=== PATIENT | female | born 1995 | race Caucasian/White ===

== ENCOUNTER 2016-12-28 12:11 | Emergency (ER) | payer MEDICAID ==
[2016-12-28 12:26] VITALS: BP 124/76; PULSE 88; RESP 18; TEMP 98.2; O2SAT 98
[2016-12-28] MEDS ORDERED: NS 1,000 ML IV ONE (13:21)
[2016-12-28] MEDS ORDERED: ONDANSETRON 4 MG/2 ML VIAL IVP ONE (13:21)
[2016-12-28] MEDS ORDERED: HYDROmorphONE/DILAUDID 1 MG/ML SYR IVP ONE (13:21)
--- NOTE | 2016-12-28 13:21 | EDPHY ---
H & P Stated Complaint: Body aches, nausea, numerous other c/o, x 1 day Time Seen by Provider: 12/28/16 13:26 HPI/ROS: HPI: 21-year-old female presents to emergency department with chief concern abdominal pain. Reports 8/10 mid epigastric and left-sided abdominal pain that radiates around into her back that onset suddenly last night. Reports associated dizziness, nausea and subjective fever. Denies URI symptoms, shortness of breath, chest pain, vomiting, diarrhea, urinary symptoms. No unusual vaginal discharge or lesions. Normal bowel movements. ROS:10 point review of systems is negative other than as stated in HPI Source: Patient Exam Limitations: No limitations - Personal History LMP (Females 10-55): 15-21 Days Ago Current Tetanus Diphtheria and Acellular Pertussis (TDAP): Yes - Medical/Surgical History Hx Asthma: No Hx Chronic Respiratory Disease: No Hx Diabetes: No Hx Cardiac Disease: No Hx Renal Disease: No Hx Cirrhosis: No Hx Alcoholism: No Hx HIV/AIDS: No Hx Splenectomy or Spleen Trauma: No Other PMH: PMH: pancreatitis; spinalbifida; spinal fluid leaks;. PSH: 32 sx for spinabifida; ovarian cyst - Family History Significant Family History: No pertinent family hx - Social History Smoking Status: Former smoker Alcohol Use: Rarely Drug Use: None - Physical Exam Exam: Vital signs stable, reviewed by me General: Awake, alert, calm, cooperative. No acute distress. Head: Normalocephalic. Atraumatic. EENT: PERRLA. EOMI. No pallor or injection. Anicteric. No nystagmus. No injection. TMs intact bilaterally with normal landmarks. No rhinnorhea, nasal passages clear. Oropharynx without redness, exudates, or lesions. Tonsils 2+ bilaterally, no exudates. Neck: Supple, nontender. No lymphadenopathy. Full range of motion. No meningismus. Respiratory: Breathing unlabored. Breath sounds equal bilaterally and clear to auscultation. No adventitious sounds. CV: Chest nontender, atraumatic. Heart rate regular. No murmur. Brisk cap refill all extremities. GI: Abdomen soft, mid epigastric tenderness, left abdominal tenderness. Mild right upper quadrant tenderness. Negative Davis sign. No right lower quadrant tenderness. No guarding. No rebound. Bowel sounds normoactive and positive x4 quadrants. : No suprapubic tenderness. No CVA or flank tenderness. Neuro: Alert. Oriented x 3. Speech clear. Nonfocal cranial nerves throughout. Sensation intact all extremities. Skin: Skin warm, dry, intact. No rashes, abrasions, or lacerations. Skin turgor normal. Extremities: Full range of motion in all 4 extremities. Strength 5+ all extremities. Constitutional: Initial Vital Signs Temperature (C) 36.8 C 12/28/16 12:20 Heart Rate 88 12/28/16 12:20 Respiratory Rate 18 12/28/16 12:20 Blood Pressure 124/76 H 12/28/16 12:20 O2 Sat (%) 98 12/28/16 12:20 O2 Delivery Mode Room Air Allergies/Adverse Reactions: latex Allergy (Mild, Verified 12/28/16 12:22) Rash morphine Allergy (Mild, Verified 12/28/16 12:22) Rash phenobarbital Allergy (Verified 12/28/16 12:22) Home Medications: Medication Instructions Recorded Hydrocodone/APAP 5/325 [Ophir 1 - 2 tab PO Q6H PRN #10 tab 12/28/16 5/325 (*)] Medical Decision Making - Diagnostics Imaging: CT Scan of the Abdomen and Pelvis (With Contrast) Clinical Indications: Patient presents to the emergency room with epigastric pain that radiates to the back. She has history of pancreatitis, spina bifida, post surgery. Comparison: January 18, 2016, noncontrasted scan of the abdomen and pelvis. Impression: 1. Normal pancreas. 2. Classic left renal nutcracker syndrome, with prominent left gonadal vein consistent with pelvic congestion as a result of the syndrome. Classic symptoms of nutcracker syndrome includes flank pain, abdominal pain, hematuria, pelvic congestion and its related symptoms, and lower extremity varicosities. Could this be the cause of patient's epigastric and back pain? If so, treatment includes stent placement versus surgery, the former much less invasive. If clinically applicable, I am happy to see this patient in consultation in interventional radiology for further discussion. Findings were discussed with YURI Agudelo, in the emergency room at the time of this dictation. Dictated By: Uzma Mcconnell MD ED Course/Re-evaluation: 1330: Nontoxic afebrile female presents to emergency department with abdominal pain that radiates into her back associated with subjective fever, nausea, dizziness that onset suddenly last night. Vitals are stable. She is afebrile. She has a history of pancreatitis when she was in 7th grade. IV started. Normal saline hung. Patient given 4 mg IV Zofran, 0.5 mg IV Dilaudid. Urinalysis and labs are pending. CT abdomen pelvis ordered. 1410: Nausea resolved. Abdominal pain resolved. White count 6340. BUN and creatinine 9 and 0.5. LFTs and lipase negative.. Urinalysis negative. CT abdomen pelvis pending. Vitals stable. 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 She is stable. Vitals are stable. Will have her follow up with primary care tomorrow with a CT scan on disc Differential Diagnosis: Differential diagnosis includes but is not limited to pancreatitis, cholecystitis, dyspepsia, UTI, appendicitis - Data Points Laboratory Results: Laboratory Results 12/28/16 13:44 12/28/16 13:44 12/28/16 12/28/16 13:44 13:30 WBC 6.34 10^3/uL (3.80-9.50) RBC 4.96 10^6/uL (4.18-5.33) Hgb 14.5 g/dL (12.6-16.3) Hct 43.0 % (38.0-47.0) MCV 86.7 fL (81.5-99.8) MCH 29.2 pg (27.9-34.1) MCHC 33.7 g/dL (32.4-36.7) RDW 13.3 % (11.5-15.2) Plt Count 207 10^3/uL (150-400) MPV 11.1 fL (8.7-11.7) Neut % (Auto) 49.7 % (39.3-74.2) Lymph % (Auto) 38.6 % (15.0-45.0) [place] % (Auto) 6.0 % (4.5-13.0) Eos % (Auto) 4.4 % (0.6-7.6) Baso % (Auto) 1.1 % (0.3-1.7) Nucleat RBC Rel Count 0.0 % (0.0-0.2) Absolute Neuts (auto) 3.15 10^3/uL (1.70-6.50) Absolute Lymphs (auto) 2.45 10^3/uL (1.00-3.00) Absolute Monos (auto) 0.38 10^3/uL (0.30-0.80) Absolute Eos (auto) 0.28 10^3/uL (0.03-0.40) Absolute Basos (auto) 0.07 10^3/uL (0.02-0.10) Absolute Nucleated RBC 0.00 10^3/uL (0-0.01) Immature Gran % 0.2 % (0.0-1.1) Immature Gran # 0.01 10^3/uL (0.00-0.10) Sodium 140 mEq/L (134-144) Potassium 4.6 mEq/L (3.5-5.2) Chloride 107 mEq/L (97-110) Carbon Dioxide 24 mEq/l (22-31) Anion Gap 9 mEq/L (8-16) BUN 9 mg/dL (7-23) Creatinine 0.5 L mg/dL (0.6-1.0) Estimated GFR > 60 Glucose 81 mg/dL (70-100) Calcium 9.2 mg/dL (8.5-10.4) Total Bilirubin 0.8 mg/dL (0.1-1.4) Conjugated Bilirubin 0.2 mg/dL (0.0-0.5) Unconjugated Bilirubin 0.6 mg/dL (0.0-1.1) AST 43 IU/L (14-46) ALT 42 IU/L (9-52) Alkaline Phosphatase 61 IU/L (38-126) Total Protein 6.6 g/dL (6.3-8.2) Albumin 3.6 g/dL (3.5-5.0) Lipase 68.0 IU/L (23-300) Urine Color PALE YELLOW Urine Appearance CLEAR Urine pH 8.0 H (5.0-7.5) Ur Specific [place] 1.010 (1.002-1.030) Urine Protein NEGATIVE (NEGATIVE) Urine Ketones NEGATIVE (NEGATIVE) Urine Blood NEGATIVE (NEGATIVE) Urine Nitrate NEGATIVE (NEGATIVE) Urine Bilirubin NEGATIVE (NEGATIVE) Urine Urobilinogen NEGATIVE EU (0.2-1.0) Ur Leukocyte Esterase NEGATIVE (NEGATIVE) Urine Glucose NEGATIVE (NEGATIVE) Urine Test NEGATIVE Medications Given: Discontinued Medications Hydromorphone HCl (Dilaudid) 0.5 mg IVP EDNOW ONE Stop: 12/28/16 13:22 Last Admin: 12/28/16 13:59 Dose: 0.5 mg Sodium Chloride (Ns) 1,000 mls @ 0 mls/hr IV ONCE ONE PRN Reason: Wide Open Stop: 12/28/16 13:22 Last Admin: 12/28/16 14:00 Dose: 1,000 mls Ondansetron HCl (Zofran) 4 mg IVP EDNOW ONE Stop: 12/28/16 13:22 Last Admin: 12/28/16 14:00 Dose: 4 mg Departure - Departure Disposition: Home, Routine, Self-Care Clinical Impression: Abdominal pain Qualifiers: Abdominal location: generalized Qualifier Code: (R10.84) Generalized abdominal pain Condition: Good Instructions: Acute Abdominal Pain (ED) Additional Instructions: Plan: You have nutcracker syndrome which may or may not be contributing to your discomfort Please follow up with primary care tomorrow for recheck without fail You may use 600 mg of ibuprofen every 6 hours for fever, inflammation, or pain. Always take ibuprofen with food and stay well hydrated while taking. Do not exceed the maximum allowable dose in a 24 hour period which is 2400 mg. May use 1-2 Ophir every 4-6 hours as needed for severe pain--Never drink or drive while taking this medication. This medication impairs decision making capacity so do not work or sign important documents while taking. This medication its constipating so drink plenty of fluids and consider an over-the- counter stool softener such as docusate sodium (Colace) while taking this medication. This medication has addictive properties. You should use the least amount for the shortest amount of time. [facility] do not refill narcotic pain medication prescriptions. This is a hospital policy. You will need to follow up as indicated for recheck for further narcotic refills. Referrals: Tory Mccullough MD [Primary Care Provider] - As per Instructions Prescriptions: Hydrocodone/APAP 5/325 [Ophir 5/325 (*)] 1 - 2 tab PO Q6H PRN #10 tab PRN Reason: severe pain
[2016-12-28 13:49] LABS: % IMMATURE GRANULYOCYTES 0.2 % (0.0-1.1); ABSOLUTE IMMATURE GRANULOCYTES 0.01 10^3/uL (0.00-0.10); ADD DIFF? NO; ADD MORPH? NO; ADD SCAN? NO; ATYPICAL LYMPHOCYTE FLAG 20 (0-99); FRAGMENT RBC FLAG 0 (0-99); HEMOGLOBIN 14.5 g/dL (12.6-16.3); LEFT SHIFT FLG 0 (0-99); LIPEMIA HEMOLYSIS FLAG 80 (0-99); MEAN CELL HEMOGLOBIN 29.2 pg (27.9-34.1); MEAN CELL HEMOGLOBIN CONCENTR. 33.7 g/dL (32.4-36.7); MEAN CELL VOLUME 86.7 fL (81.5-99.8); MEAN PLATELET VOLUME 11.1 fL (8.7-11.7); PLATELET CLUMPS FLAG 20 (0-99); PLATELET COUNT 207 10^3/uL (150-400); RED BLOOD CELL COUNT 4.96 10^6/uL (4.18-5.33); RED CELL DISTRIBUTION WIDTH 13.3 % (11.5-15.2)
[2016-12-28 13:58] LABS: COLOR PALE YELLOW; LEUKOCYTE ESTERASE,URINE NEGATIVE (NEGATIVE); NITRITE,URINE NEGATIVE (NEGATIVE)
[2016-12-28 14:17] LABS: ALANINE AMINOTRANSFERASE 42 IU/L (9-52); ALBUMIN 3.6 g/dL (3.5-5.0); ALKALINE PHOSPHATASE 61 IU/L (38-126); ANION GAP 9 mEq/L (8-16); ASPARTATE AMINOTRANSFERASE 43 IU/L (14-46); BILIRUBIN,TOTAL 0.8 mg/dL (0.1-1.4); BILIRUBIN-CONJUGATED 0.2 mg/dL (0.0-0.5); BILIRUBIN-UNCONJUGATED 0.6 mg/dL (0.0-1.1); CALCIUM 9.2 mg/dL (8.5-10.4); CARBON DIOXIDE 24 mEq/l (22-31); CHLORIDE 107 mEq/L (97-110); CREATININE 0.5 mg/dL (0.6-1.0); GLOMERULAR FILTRATION RATE > 60; GLUCOSE 81 mg/dL (70-100); POTASSIUM 4.6 mEq/L (3.5-5.2); SODIUM 140 mEq/L (134-144); TOTAL PROTEIN 6.6 g/dL (6.3-8.2)
[2016-12-28] MEDS ORDERED: IOPAMIDOL (ISOVUE-300) 100 ML BTL IV ONE (14:20)
--- NOTE | 2016-12-28 15:07 | CT ---
CT Scan of the Abdomen and Pelvis (With Contrast) Clinical Indications: Patient presents to the emergency room with epigastric pain that radiates to th e back. She has history of pancreatitis, spina bifida, post surgery. Comparison: January 18, 2016, noncontrasted scan of the abdomen and pelvis. Technique: Dilute contrast was given orally prior to the scan. During the machine power injection o f 90 mL [id number]-300 intravenously, multidetector helical CT imaging was performed from the diaphragm t o the pubic symphysis. Coronal and parasagittal reformatted images are reviewed on the workstation. Dose reduction techniques were utilized. Findings: Patient has classic nutcracker syndrome, where the SMA and aorta pinches the left renal vei n significantly. In her case, the pinch is 2 cm long, where the renal vein measures maximally 4 mm. T he normal renal vein measures 11 mm. As a result of this central stenosis, there is reflux of flow in now a large left gonadal vein, given patient's young age. This vein now measures 6 mm when it normal ly should be less than 2 mm. It extends down to the pelvis, and contributes to a cluster of varicosit ies in the periadnexal region. There is no evidence for clot or thrombosis of the renal vein. This is a congenital phenomenon, most likely, although it can also happen with rapid weight loss. Otherwise, the pancreas, liver, spleen, kidneys, and adrenal glands enhance normally. Gallbladder is without any wall thickening or inflammation. No stones. Uterus and ovaries are normal. No ascites or mass. No adenopathy. Soft tissues and bones are normal for the patient's age. Impression: 1. Normal pancreas. 2. Classic left renal nutcracker syndrome, with prominent left gonadal vein consistent with pelvic co ngestion as a result of the syndrome. Classic symptoms of nutcracker syndrome includes flank pain, abdominal pain, hematuria, pelvic conges tion and its related symptoms, and lower extremity varicosities. Could this be the cause of patient's epigastric and back pain? If so, treatment includes stent placement versus surgery, the former much less invasive. If clinically applicable, I am happy to see this patient in consultation in [facility] for further discussion. Findings were discussed with YURI Agudelo, in the emergency room at the time of this dictation.
[2016-12-28] MEDS ORDERED: ONDANSETRON 4MG PREPACK#2 BTL TAKEHOME ONE ×2 (15:29)
== END 2016-12-28 15:30 | disposition home or self-care (01) ==
DX: R10.84 Generalized abdominal pain (principal); R42 Dizziness and giddiness; R11.0 Nausea; R50.9 Fever, unspecified; Z87.891 Personal history of nicotine dependence; Z91.040 Latex allergy status
CPT/HCPCS: 96374; J1170; J2405; Q9967

== ENCOUNTER 2017-09-09 15:01 | Emergency (ER) | payer MEDICAID ==
[2017-09-09 15:13] VITALS: BP 121/74; PULSE 66; RESP 18; TEMP 98.4; O2SAT 99
[2017-09-09] MEDS ORDERED: diphenhydrAMINE 25 MG CAP PO ONE (15:34)
--- NOTE | 2017-09-09 15:34 | EDPHY ---
H & P Time Seen by Provider: 09/09/17 15:26 HPI/ROS: CHIEF COMPLAINT: Insect bite HISTORY OF PRESENT ILLNESS: Patient was bit on the ulnar side of her right the forearm at 1:55 p.m. by an insect. She was outside and is very windy but she thinks it was a spider and looked clear. Did not look black. She had some pain at the site and then broke out in a blotchy rash on her arm and at tingling all the way down into her fingertips. Currently it is a little bit irritated and itchy and a little bit painful. REVIEW OF SYSTEMS: No fever or chills PAST MEDICAL HISTORY: Spina bifida Social history: [employer] General Appearance: Alert and conversant, cooperative. No lymphangitis and no axillary lymphadenopathy Patient has 4 cm area of faint erythema around where the bite was. Normal motor sensory and radial pulse in the right hand. Compartments are soft. Normal voice. Emergency Department course/MDM: Patient does not have high likelihood of cellulitis or systemic anaphylaxis. Oral Benadryl and ice pack. Unlikely to be brown recluse or black bite. Smoking Status: Former smoker Constitutional: Initial Vital Signs Temperature (C) 36.9 C 09/09/17 15:12 Heart Rate 66 09/09/17 15:12 Respiratory Rate 18 09/09/17 15:12 Blood Pressure 121/74 H 09/09/17 15:12 O2 Sat (%) 99 09/09/17 15:12 O2 Delivery Mode Room Air Allergies/Adverse Reactions: latex Allergy (Mild, Verified 09/09/17 15:13) Rash morphine Allergy (Mild, Verified 09/09/17 15:13) Rash phenobarbital Allergy (Verified 09/09/17 15:13) Home Medications: Medication Instructions Recorded NK [No Known Home Meds] 09/09/17 MDM/Departure - MDM Medications Given: Discontinued Medications Diphenhydramine HCl (Benadryl) 25 mg PO EDNOW ONE Stop: 09/09/17 15:35 Last Admin: 09/09/17 15:41 Dose: 25 mg - Depart Disposition: Home, Routine, Self-Care Clinical Impression: Insect sting Qualifiers: Encounter type: initial encounter Injury intent: undetermined intent Qualified Code(s): T63.484A - Toxic effect of venom of other arthropod, undetermined, initial encounter Condition: Good Instructions: Insect Bite or Sting (ED) Stand Alone Forms: Work Excuse Referrals: Tory Mccullough MD [Primary Care Provider] - As per Instructions
== END 2017-09-09 15:44 | disposition home or self-care (01) ==
DX: T63.484A Toxic effect of venom of other arthropod, undetermined, initial encounter (principal); Z87.891 Personal history of nicotine dependence; Z91.040 Latex allergy status

== ENCOUNTER 2018-04-01 21:31 | Emergency (ER) | payer SELFPAY ==
[2018-04-01] MEDS ORDERED: LET GEL TOPICAL 1 EA SYR TP ONE (21:52)
[2018-04-01] MEDS ORDERED: AMOXICILLIN/CLAVULANATE POT 875/125 MG TAB PO ONE (21:53)
[2018-04-01] MEDS ORDERED: IBUPROFEN 800 MG TAB PO ONE (21:53)
--- NOTE | 2018-04-01 21:56 | EDPHY ---
H & P Stated Complaint: bit on left leg by a neighbors dog Time Seen by Provider: 04/01/18 21:45 HPI/ROS: Chief complaint: Dog bite to left leg History of present illness: This is a 22-year-old female who presents to the emergency department for evaluation of a dog bite to her left leg. Patient reports her neighbor's dog ran up to her and bit her on her left thigh. She states this was unprovoked. She has noted some small puncture wounds. There is bruising. It hurts to walk. She denies associated signs or symptoms including no abnormal coolness or paresthesias in the leg. No other injuries reported. She is unsure if her tetanus shot is up-to-date. - Personal History LMP (Females 10-55): 15-21 Days Ago Current Tetanus Diphtheria and Acellular Pertussis (TDAP): Yes - Medical/Surgical History Hx Asthma: No Hx Chronic Respiratory Disease: No Hx Diabetes: No Hx Cardiac Disease: No Hx Renal Disease: No Hx Cirrhosis: No Hx Alcoholism: No Hx HIV/AIDS: No Hx Splenectomy or Spleen Trauma: No Other PMH: PMH: pancreatitis; spinalbifida; spinal fluid leaks; depression. PSH : 32 sx for spinabifida; ovarian cyst - Social History Smoking Status: Former smoker - Physical Exam Exam: General: Alert, nontoxic Skin: Multiple puncture wounds to the left, lateral, distal thigh. There is ecchymosis as well. No other lesions noted. Musculoskeletal: Patient is moving all joints in all dias in the left lower extremity without difficulty. Vascular: DP and PT pulses 2+ bilaterally. Neurologic: Sensation intact throughout the left leg. Constitutional: Initial Vital Signs Temperature (C) 36.9 C 04/01/18 21:37 Heart Rate 101 H 04/01/18 21:37 Respiratory Rate 18 04/01/18 21:37 Blood Pressure 124/51 H 04/01/18 21:37 O2 Sat (%) 100 04/01/18 21:37 O2 Delivery Mode Room Air Allergies/Adverse Reactions: latex Allergy (Mild, Verified 09/09/17 15:13) Rash morphine Allergy (Mild, Verified 09/09/17 15:13) Rash phenobarbital Allergy (Verified 09/09/17 15:13) Home Medications: Medication Instructions Recorded Amoxicillin/Clavulanate Pot 875 mg PO BID #14 tab 04/01/18 [Augmentin 875 MG TAB (*)] PRISTIQ 04/01/18 Propranolol HCl 04/01/18 Medical Decision Making ED Course/Re-evaluation: Patient seen under the supervision of my secondary supervising physician Dr. Tammy Newsome. Patient presents to the emergency department after being bit by a dog. She has small puncture wounds over the lateral distal thigh on the left side. These are explored and cleaned, no foreign bodies noted. They have been dressed. She is started on Augmentin. Her tetanus is updated. Home care is discussed. Return precautions are given. Differential Diagnosis: Included but not limited to superficial and deep structure injury from animal bite - Data Points Medications Given: Discontinued Medications Amoxicillin/Clavulanate Potassium (Augmentin 875mg) 875 mg PO EDNOW ONE PRN Reason: Protocol Stop: 04/01/18 21:54 Last Admin: 04/01/18 22:15 Dose: 875 mg Diphtheria/Tetanus/Acell Pertussis (Boostrix) 0.5 ml IM .ONCE ONE Stop: 04/01/18 22:28 Last Admin: 04/01/18 22:31 Dose: 0.5 ml Ibuprofen (Motrin) 800 mg PO EDNOW ONE Stop: 04/01/18 21:54 Last Admin: 04/01/18 22:15 Dose: 800 mg Tetracaine/Epinephrine/Lidocaine (Let Gel Topical) 2 ea TP EDNOW ONE Stop: 04/01/18 21:53 Last Admin: 04/01/18 21:54 Dose: 2 ea Departure - Departure Disposition: Home, Routine, Self-Care Clinical Impression: Animal bite Condition: Good Instructions: Animal Bite (ED), Acute Wounds (ED) Additional Instructions: Follow-up with a primary care doctor for recheck this week Take antibiotics as prescribed until finished even if feeling better You can take ibuprofen 600 mg 4 times a day for the next 2-3 days for pain control In addition You can take Tylenol 650 mg 4 times a day for the next 2-3 days for pain control Keep wounds clean with soap and water If symptoms worsen or new symptoms develop return to the emergency room for recheck Referrals: Tory Mccullough MD [Primary Care Provider] - As per Instructions Prescriptions: Amoxicillin/Clavulanate Pot [Augmentin 875 MG TAB (*)] 875 mg PO BID #14 tab
[2018-04-01] MEDS ORDERED: TDAP ADULT 0.5 ML INJ (BOOSTRIX) IM ONE (22:27)
[2018-04-01 22:38] VITALS: BP 113/69
== END 2018-04-01 22:37 | disposition home or self-care (01) ==
DX: S71.152A Open bite, left thigh, initial encounter (principal); Z23 Encounter for immunization; Z87.891 Personal history of nicotine dependence; Z91.040 Latex allergy status; W54.0XXA Bitten by dog, initial encounter

== ENCOUNTER 2018-05-25 17:18 | Emergency (ER) | payer SELFPAY ==
--- NOTE | 2018-05-25 17:30 | EDPHY ---
H & P Time Seen by Provider: 05/25/18 17:21 HPI/ROS: 22-year-old female presents complaining of diarrhea, vomiting, body aches, headache, neck pain for approximately 5 days duration. She states she has had fevers as high as 100.4 at home. She has been taking Tylenol and took some about 2 hr before arriving here. Last weekend she was in [place] at a music festival for several days where she can't outdoors states she likely had multiple bug bites and shear to small space with a large group of people. She has a history of spina bifida. Review of systems As per HPI General positive fever no chills no weakness HEENT no eye pain no eye discharge. No eye redness, no sore throat Respiratory no cough, no shortness of breath Cardiac no chest pain, no peripheral edema GI no abdominal pain, positive diarrhea, no constipation, positive nausea and vomiting no flank pain, no hematuria, no dysuria Musculoskeletal positive myalgias, no joint pain Heme no easy bruising, no easy bleeding Endo no polyuria, no polydipsia Skin no rashes, no pruritus Neuro no syncope, no dizziness, positive headaches Psych is no suicidal ideation, no homicidal ideation Source: Patient Exam Limitations: No limitations - Personal History LMP (Females 10-55): 15-21 Days Ago Current Tetanus/Diphtheria Vaccine: Yes - Medical/Surgical History Hx Asthma: No Hx Chronic Respiratory Disease: No Hx Diabetes: No Hx Cardiac Disease: No Hx Renal Disease: No Hx Cirrhosis: No Hx Alcoholism: No Hx HIV/AIDS: No Hx Splenectomy or Spleen Trauma: No Other PMH: PMH: pancreatitis; spinalbifida; spinal fluid leaks; depression. PSH : 32 sx for spinabifida; ovarian cyst - Family History Significant Family History: No pertinent family hx - Social History Smoking Status: Former smoker Alcohol Use: Occasionally Drug Use: None - Physical Exam Exam: 22-year-old female alert and oriented no acute distress nontoxic appearance, afebrile Atraumatic normocephalic Extraocular muscles intact, anicteric Oropharynx no erythema no exudate Neck-supple, no meningismus Lungs clear to auscultation bilaterally Heart regular rate and rhythm Abdomen bowel sounds quiet, nondistended, soft, no focal tenderness no rebound no guarding Extremities no cyanosis clubbing or edema Back No CVA tenderness No focal midline spinal tenderness Extensive scarring secondary to multiple prior surgeries Constitutional: Initial Vital Signs Temperature (C) 36.9 C 05/25/18 17:27 Heart Rate 88 05/25/18 17:27 Respiratory Rate 16 05/25/18 17:27 Blood Pressure 117/69 05/25/18 17:27 O2 Sat (%) 96 05/25/18 17:27 O2 Delivery Mode Room Air Allergies/Adverse Reactions: latex Allergy (Mild, Verified 05/25/18 17:26) Rash morphine Allergy (Mild, Verified 05/25/18 17:26) Rash phenobarbital Allergy (Verified 05/25/18 17:26) Home Medications: Medication Instructions Recorded PRISTIQ 04/01/18 Propranolol HCl 04/01/18 Medical Decision Making ED Course/Re-evaluation: Patient seen and evaluated for myalgias, diarrhea, vomiting, headache, neck pain with fevers. IV established IV fluids ordered, given one liter normal saline Ondansetron 4 mg IV push Toradol 30 mg IVP Labs WBC wnl crp neg esr wnl urine neg, except specific gravity 10 30 Pt feeling markedly improved after fluids, ondansetron and toradol. Impression Viral Illness Mild Dehydration Plan Discharge home Follow-up with the primary care physician return as needed Differential Diagnosis: Differential diagnosis considered but not limited to: Urinary tract infection, gastroenteritis, gastritis, meningitis, pharyngitis, viral syndrome, heat exhaustion, dehydration - Data Points Laboratory Results: Laboratory Results 05/25/18 18:22 05/25/18 05/25/18 05/25/18 18:45 18:36 18:22 Hct ESR POC Sodium 141 mEq/L mEq/L (135-145) POC Potassium 3.9 mEq/L mEq/L (3.3-5.0) POC Chloride 105.0 mEq/L mEq/L (97-110) POC Total CO2 26 mEq/L mEq/L (22-31) POC BUN 10 mg/dL mg/dL (7-23) POC Creatinine 0.8 mg/dL mg/dL (0.6-1.0) POC Glucose 99 mg/dL mg/dL (70-100) POC Lactic Acid [place] 0.9 mmol/L mmol/L (0.7-2.1) POC Calcium 9.6 mg/dL mg/dL (8.5-10.4) POC Total Bilirubin 0.6 mg/dL mg/dL (0.1-1.4) POC AST 36 IU/L IU/L (14-46) POC ALT 27 IU/L IU/L (9-52) POC Alk Phosphatase 62 IU/L IU/L (38-126) C-Reactive Protein < 5.0 mg/L mg/L (<10.0) POC Total Protein 7.2 g/dL g/dL (6.3-8.2) POC Albumin 3.5 g/dL g/dL (3.5-5.0) 05/25/18 18:22 Hct 42.7 % % (38.0-47.0) ESR 6 MM/HR MM/HR (0-20) POC Sodium POC Potassium POC Chloride POC Total CO2 POC BUN POC Creatinine POC Glucose POC Lactic Acid [place] POC Calcium POC Total Bilirubin POC AST POC ALT POC Alk Phosphatase C-Reactive Protein POC Total Protein POC Albumin Medications Given: Discontinued Medications Sodium Chloride (Ns) 1,000 mls @ 0 mls/hr IV ONCE ONE PRN Reason: Wide Open Stop: 05/25/18 18:01 Last Admin: 05/25/18 18:42 Dose: 1,000 mls Sodium Chloride (Ns) 1,000 mls @ 0 mls/hr IV ONCE ONE PRN Reason: Wide Open Stop: 05/25/18 19:51 Last Admin: 05/25/18 20:24 Dose: Not Given Ketorolac Tromethamine (Toradol) 30 mg IVP EDNOW ONE Stop: 05/25/18 19:01 Last Admin: 05/25/18 19:23 Dose: 30 mg Ondansetron HCl (Zofran) 4 mg IVP EDNOW ONE Stop: 05/25/18 18:01 Last Admin: 05/25/18 18:44 Dose: 4 mg Point of Care Test Results: CBC CBC Collection Date 05/25/18 CBC Collection Time 18:22 WBC 9.1 RBC 4.99 HGB 14.7 HCT 45.2 PLT 232 Neut # 6.3 Neut 69.1 LYMPH # 2.2 LYMPH 24.4 Other WBC # 0.6 Other WBC 6.5 MCV 90.6 Chemistry 05/25/18 18:45 POC Sodium 141 mEq/L mEq/L (135-145) POC Potassium 3.9 mEq/L mEq/L (3.3-5.0) POC Chloride 105.0 mEq/L mEq/L (97-110) POC Total CO2 26 mEq/L mEq/L (22-31) POC BUN 10 mg/dL mg/dL (7-23) POC Creatinine 0.8 mg/dL mg/dL (0.6-1.0) POC Glucose 99 mg/dL mg/dL (70-100) POC Calcium 9.6 mg/dL mg/dL (8.5-10.4) POC Total Bilirubin 0.6 mg/dL mg/dL (0.1-1.4) POC AST 36 IU/L IU/L (14-46) POC ALT 27 IU/L IU/L (9-52) POC Alk Phosphatase 62 IU/L IU/L (38-126) POC Total Protein 7.2 g/dL g/dL (6.3-8.2) POC Albumin 3.5 g/dL g/dL (3.5-5.0) Blood Gas/Lactic Acid-Venous 05/25/18 18:36 POC Lactic Acid [place] 0.9 mmol/L mmol/L (0.7-2.1) Urine Collection Date 05/25/18 Collection Time 19:30 HCG Results Negative Urine Dip Collection Date 05/25/18 Collection Time 19:30 Specific [place] (1.002-1.030) 1.030 PH (5.0-7.5) 6.0 Leukocytes (Negative) Negative Nitrites (Negative) Negative Protein (Negative) Negative Glucose (Negative) Negative Ketones (Negative) Trace Urobilnogen (0.2-1.0 EU) 0.2 Bilirubin (Negative) Negative Blood (Negative) Negative Departure - Departure Disposition: Home, Routine, Self-Care Clinical Impression: Viral illness Condition: Good Instructions: Dehydration (ED), Viral Syndrome (ED) Referrals: ELSY SPEAR H,. [Primary Care Provider] - As per Instructions Stand Alone Forms: Work Excuse
[2018-05-25] MEDS ORDERED: NS 1,000 ML IV ONE ×2 (18:00→19:50)
[2018-05-25] MEDS ORDERED: ONDANSETRON 4 MG/2 ML VIAL IVP ONE (18:00)
[2018-05-25] MEDS ORDERED: KETOROLAC 30 MG/1 ML SDV IVP ONE (19:00)
[2018-05-25 21:04] VITALS: BP 104/70
== END 2018-05-25 21:11 | disposition home or self-care (01) ==
LOC: CED 17:18
DX: B34.9 Viral infection, unspecified (principal); R19.7 Diarrhea, unspecified; Z87.891 Personal history of nicotine dependence
CPT/HCPCS: 80053-PO; 83605-PO; 96374; J1885; J2405